=== PATIENT | male | born 1955 | race Caucasian/White ===

== ENCOUNTER 2023-06-02 19:33 | Outpatient (CLI) | payer BC, SELFPAY ==
--- OUTSIDE RECORDS SUMMARY | 2023-06-02 19:38 | XMS_ITS | Continuity of Care Document ---
Author Name Unknown Organization [facility] Address [address] [address] [place] [address] Phone Care Team Providers Care Radio Installer [employer] Name Role Phone Edgardo Romero MD Unavailable Unavailable Allergies, Adverse Reactions, Alerts Substance Reaction Status Criticality No Known Drug Allergies Active No I nformation Medications Medication Instructions Dosage Effective Dates (start - stop) Status Comments omeprazole 40 mg capsule,delayed release take 1 by Oral route every day Take 30 minutes before dinner - Active losartan 100 mg-hydrochlorothiaz briana 12.5 mg tablet take 1 tablet by oral route every day 1.00 tablet - Active rosuvastatin 10 mg tablet take 1 tablet by oral route every day 10 MG - Active Zyrtec 10 mg tablet take 1 tablet by oral route every day 10 MG - Active Multivitamin unknown Oral - Active Super B-50 Complex Plus tablet take 1 tablet by oral route every day 1 tablet - Active Imitrex 100 mg Tab as needed - Active Flomax 0.4 mg 24 hr Cap Take at bedtime - Active omeprazole 40 mg capsule,delayed release take 1 by Oral route every day Take 30 minutes before dinner - No Longer Active Procedures Procedure Date Offic/outpt E&m Estab Mod-hi 2 23 Colonoscopy Flex; W/remov Les- 21 Level Iv-surg Path Gross/micro 21 Anes - Diagnostic Colon Colonoscopy Flex; Dx (sep Pro) 16 Colonoscopy Flex; Dx (sep Pro) 11 Offic/outpt E&m Estab Low-mod 0 Routine Serum Collection G8447 Offic/outpt E&m Estab Low-mod 0 Routine Serum Collection G8447 Offic/outpt E&m Estab Mod-hi 2 10 G8447 Ugi Endo; Dx W/wo Collec Specm 10 Offic/outpt E&m New Mod Sever 0 G8447 Colonoscopy Flex; W/bx 1/mx Colonoscopy Flex; W/bx /mx Advance Directives Directive Yes / No Effective Date File Name No Information Encounters Encounter Description Practice Location Reason(s) For Visit Diagnoses Date Provider Providers Copied on Encounter [facility], [address] [address], [place], [place], [id number], tel:[phone] [facility] No Information 3 Nick Reynoso. [address] [place] [address], [id number], [place]. tel:[phone] [facility], [address] [address], [place], [place], [id number], [place] tel:[phone] [facility] No Information 3 Nick Reynoso. [address] [place] [address], [id number], [place]. tel:[phone] Offic/outpt E&m Estab Mod-hi 2 [facility], [address] [address], [place], [place], [id number], [place] tel:[phone] [facility] GI Symptoms or Concerns (chief complaint) Chronic cough 3 Nick Reynoso. [address] [place] [address], [id number], [place]. tel:[phone] Referring Provider: Referral Self, USE FOR SELF REFERRALS. [facility], [address] [address], [place], [id number], [place] tel:[phone] [facility] No Information 3 Rickey Carl. [address] [facility], [facility] [address], [place], [id number], [place]. tel:[phone] [facility], [address] [address], [place], [id number], [place] tel:[phone] [facility] Colorectal polypsInterna l and external hemorrhoids without complicationH istory of adenomatous polyp of colonEncounte r for screening for malignant neoplasm of colonBenign neoplasm of cecumBenign neoplasm of descending colonBenign neoplasm of descending colonBenign neoplasm of cecumPersonal history of colonic polyps 1 Ayla Lovelace. [address] [facility], [address], [id number], [place]. tel:[phone] Referring Provider: Ibrahima ISAACS, [address], [place], [address]. tel:[phone] [facility], [address] [address], [facility] [place], [id number], [place] tel:[phone] [facility] No Information 1 Ifeanyi Díaz. [address] [facility], [facility] [address], [place], [id number], [place]. tel:[phone] Referring Provider: Radu Wheeler, [address], [address]. tel:[phone] [facility], [address] [address], [facility] [place], [id number], [place] tel:[phone] [facility] No Information 1 Luis Stanley. [address] [facility], [facility] [address], [place], [id number], [place]. tel:[phone] [facility], [address] [address], [place], [id number], [place] tel:[phone] [facility] History of colon polypsEncount er for screening for malignant neoplasm of colonPersonal history of colonic polyps 6 Julián Beach. [address], [id number], [place]. [phone] Referring Provider: Referral Self, USE FOR SELF REFERRALS. [facility], [address] [address], [place], [id number], [place] tel:[phone] [facility] Personal History Colon PolypsPersona l History Colon Polyps 1 Kaylin Rose. [address] [place] [address], [id number], [place]. tel:[phone] Offic/outpt E&m Estab Low-mod [facility], [address] [address], [place], [id number], [place] tel:[phone] [facility] f/u testing (chief complaint) Abdominal Pain, UnspecifiedAb dominal Pain, Unspecified 0 No Information Offic/outpt E&m Estab Low-mod [facility], [address] [address], [place], [id number], [place] tel:[phone] [facility] Abdominal pain (chief complaint) Periumbilic PainPeriumbil ic Pain 0 No Information Offic/outpt E&m Estab Mod-hi [address] [facility], [address] [address], [place], [id number], [place] tel:[phone] [facility] Abdominal pain (chief complaint) Abdominal Pain, Unspecified 0 No Information [facility], [address] [address], [place], [id number], [place] tel:[phone] [facility] Abdominal Pain, Unspecified 0 Link MD Schneider. [address] [facility], [address], [id number], [place]. tel:[phone] Offic/outpt E&m New Mod Sever [facility], [address] [address], [place], [id number], [place] tel:[phone] [facility] Stomach pain (chief complaint) Periumbilic PainDiarrhea 201 0 No Information [facility], [address] [address], [place], [id number], [place] tel:[phone] [facility] No Information 200 6 Kaylin Rose. [address] [facility], [facility] [address], [place], [place], [id number], [place]. tel:[phone] Family History Family Member Type Diagnosis Age At Onset Brother Problem (finding) Alive and well First degree family history Problem (finding) No history of Ulcerative Colitis Father Problem (finding) Alive and well First degree family history Problem (finding) No Family history of No history of Colon Polyps First degree family history Problem (finding) No history of Crohn's Sister Problem (finding) Alive and well Daughter Problem (finding) Alive and well Mother Problem (finding) First degree family history Problem (finding) No history of Cancer, colon Son Problem (finding) Alive and well Immunizations Vaccine Date Status Comments SARS-COV-2 (COVID-19) vaccin e, mRNA, spike protein, LNP, bivalent booster, preservative free, 30 mcg/0.3 mL dose, keesha-sucrose formulation administered Note: [facility] bi-d irectional interface ; Source: Other Registry influenza, seasonal vaccine, quadrivalent, adjuvanted, 0.5mL dose, preservative free administered Note: [facility] bi-di rectional interface ; Source: Other Registry Prevnar administered Note: [facility] bi-d irectional interface ; Source: Other Registry SARS-COV-2 (COVID-19) vaccin e, vector non-replicating, recombinant spike protein-Ad26, preservative free, 0.5 mL administered Note: [facility] bi- directional interface ; Source: Other Registry influenza, seasonal vaccine, quadrivalent, adjuvanted, 0.5mL dose, preservative free administered Note: [facility] bi-di rectional interface ; Source: Other Registry SARS-COV-2 (COVID-19) vaccin e, vector non-replicating, recombinant spike protein-Ad26, preservative free, 0.5 mL administered Note: [facility] bi- directional interface ; Source: Other Registry tetanus and diphtheria toxoi ds, adsorbed, preservative free, for adult use (2 Lf of tetanus toxoid and 2 Lf of diphtheria toxoid) administered Note: [facility] bi-direct ional interface ; Source: Other Registry Influenza, injectable, Madin [place] Canine Kidney, preservative free, quadrivalent administered Note: [place] [facility] bi- directional interface ; Source: Other Registry zoster vaccine recombinant administered N ote: [facility] bi-directional interface ; Source: Other Registry Afluria Qd administered Note: M [facility] bi-directional interface ; Source: Other Registry zoster vaccine recombinant administered N ote: [facility] bi-directional interface ; Source: Other Registry Afluria Qd administered Note: M [facility] bi-directional interface ; Source: Other Registry Afluria Qd administered Note: M [facility] bi-directional interface ; Source: Other Registry Afluria Qd administered Note: M [facility] bi-directional interface ; Source: Other Registry Afluria Qd administered Note: M [facility] bi-directional interface ; Source: Other Registry Afluria Qd administered Note: M [facility] bi-directional interface ; Source: Other Registry Afluria Qd administered Note: M [facility] bi-directional interface ; Source: Other Registry Afluria Qd administered Note: M [facility] bi-directional interface ; Source: Other Registry Afluria Qd administered Note: M [facility] bi-directional interface ; Source: Other Registry Afluria Qd administered Note: M [facility] bi-directional interface ; Source: Other Registry Afluria Qd administered Note: M [facility] bi-directional interface ; Source: Other Registry Afluria Qd administered Note: Summer II bi-directional interface ; Source: Other Registry tetanus toxoid, reduced diphtheria toxoid, and acellular pertussis vaccine, adsorbed administered Note: JAJA robles i-directional interface ; Source: Other Registry Payers Payer name Insurance type Covered democrat ID Authorkelvin barry(s) [facility] [id number] Social History Type Description Quantity Date Captured Comments Alcohol Use Details Unknown Caffeine Use Details Unknown Tobacco Use Status No Information Smoking Status No Information Sex Male Chief Complaint And Reason For Visit No Information Reason For Referral Reason For Referral No Information History Of Present Illness Encounter Date Complaint History Of Prese nt Illness GI Symptoms or Concerns I had th e pleasure of meeting Mr. Fernandez Ribeiro, 67-year-old gentleman seen as a self-referred new patient for evaluation of chronic cough Fernandez tells me that he is had a cough for many months perhaps nearly a year. His symptoms are specifically at their worst when he lays down at night for bed and the coughing will keep him up to a degree that make it difficult to fall asleep. He also notices it in the morning when he is getting up. Can occasionally have the cough during the day as well He denies any heartburn or reflux and says that eating is not a trigger for cough typically. He denies any dysphagia or odynophagia. He was seen by carpenters and said he had x-rays and other testing done and everything was normal. It was recommended he try taking NyQuil at night and a small dose 1st thing in the morning and this has been helpful to at least help him fall asleep more easily but has not really affected the coughing act very much He had been prescribed lisinopril by his PCP and that seemed to worsen his cough and he has been transitioned to losartan but the cough did predate the use of lisinopril He was seen by an AP[facility] and an ENT Clinic who performed a visual exam of his nose and throat without laryngoscopy. He was prescribed Augmentin to empirically treat an infection but this did not help his cough at all. He denies any overt postnasal drip that he can recognize Functional Status Date Functional Assessmen t No Information Instructions Date Instruction Additional Infor lisy I do not know the ca use of your coughPossible causes include:-reflux (silent), sinus/post nasal drip, or hypersensitive nerve receptors in the throatThings to try:-Omeprazole (prilosec) at a 40 mgs dose every evening before dinner for one month and observe symptoms-Cough drop (strong one that is mint or fisherman's friend) with strong menthol before laying down. Try this for 1-2 weeks.-Nasal spray: either a steroid like flonase or nasonex or an astringent (clears the nasal passages) like oxymetozalone (sp?)-Lastly, consider seeing an ENT doctor in clinic to have a laryngoscopy performed in clinic to rule out nuanced issues in the oropharynx/throat. I have heard [facility], you can google ENT and Dr. Laguna to see the contact info, otherwise, [facility] is very good. Related to Chronic cough Colon Polyps Related to Color ectal polyps Hemorrhoids Related to Color ectal polyps High Fiber Diet Related to Color ectal polyps Colon Cancer Prevention Related to Colorectal polyps Assessments Type Assessment Date No Information Patient Care Teams Name Effective Dates (start - stop) Status Members No Information
--- NOTE | 2023-06-10 12:33 | W.PM.SLEEP ---
Sleep Study Details Details Interpreting Provider: Jase Date of Sleep Study: 06/02/23 Sleep Study Details: STUDY TYPE:? Home unattended ? BMI:? Not recorded ORDERING PROVIDER:? Jase INDICATION:? Concerns about sleep apnea ? SLEEP SUMMARY:? 550 minutes monitored RESPIRATORY SUMMARY:? AHI 5.2, supine 11.3, left lateral 2.6, right lateral 3.3 Low oxygen 82 1.2% of study oxygen less than 90% Snoring 1.8% PERIODIC LIMB MOVEMENTS OF SLEEP:? Not recorded during home study CARDIAC:? Range 63-1 awake, mean 73 IMPRESSION:? Mild obstructive sleep apnea with supine position dependency RECOMMENDATION: Options would include positional therapy with avoidance of supine sleep, AutoSet CPAP, dental appliance and/or airway expansion surgery.
== END 2023-06-02 19:34 | disposition home or self-care (01) ==
PROVIDERS: Visit Provider Otolaryngology
DX: G47.33 Obstructive sleep apnea (adult) (pediatric) (principal)
CPT/HCPCS: 95806